=== PATIENT | female | born 2000 | race Caucasian/White ===

== ENCOUNTER 2020-03-18 16:11 | Emergency (ER) | payer OTHER, MEDICAID ==
[~2020-03-18] VITALS: Ht 170.2 cm; Wt 90.7 kg
[2020-03-18 16:23] VITALS: BP 149/77
== END 2020-03-18 17:25 | disposition home or self-care (01) ==
LOC: M.ERS 16:11
DX: S61.511A Laceration without foreign body of right wrist, initial encounter (principal); W25.XXXA Contact with sharp glass, initial encounter; Y93.89 Activity, other specified; Y92.89 Other specified places as the place of occurrence of the external cause; Y99.8 Other external cause status